=== PATIENT | female | born 1965 | race American Indian/Alaskan Native ===

== ENCOUNTER 2022-03-04 11:18 | Outpatient (CLI) | payer OTHER ==
--- NOTE | 2022-03-04 13:35 | XRay Report ---
LEFT HAND 3 VIEW(S) INDICATION / CLINICAL INFORMATION: LEFT HAND PAIN COMPARISON: None available. FINDINGS: BONES / JOINT(S): No acute fracture or subluxation. No significant arthritis. SOFT TISSUES: No significant abnormality. ADDITIONAL FINDINGS: None. Signer Name: Kenneth Liu MD Signed: 03/04/2022 1:31 PM Workstation Name: [email or web address]
--- NOTE | 2022-03-04 13:35 | XRay Report ---
LUMBAR SPINE 3 VIEWS INDICATION / CLINICAL INFORMATION: BACK PAIN. COMPARISON: None available. FINDINGS: VERTEBRAE: No acute fracture. Grade 1 anterolisthesis L4-5. DISC SPACES / FACET JOINTS:Mild facet arthropathy at L4-5 and L5-S1. PARASPINAL SOFT TISSUES:No significant abnormality. ADDITIONAL FINDINGS: None. Signer Name: Kenneth Liu MD Signed: 03/04/2022 1:30 PM Workstation Name: [email or web address] [id number]
== END 2022-03-04 11:19 | disposition home or self-care (01) ==
LOC: XRAY 11:18
PROVIDERS: ATTEND Internal Medicine
DX: Z02.71 Encounter for disability determination (principal); M54.50 Low back pain, unspecified; M79.642 Pain in left hand
CPT/HCPCS: 72100